=== PATIENT | male | born 1995 | race African-American/Black ===

== ENCOUNTER 2018-04-02 02:00 | Emergency (ER) | payer MEDICAID ==
[~2018-04-02] VITALS: Ht 182.9 cm; Wt 82.0 kg
[2018-04-02 06:35] VITALS: BP 139/98
== END 2018-04-02 08:15 | disposition left against medical advice (07) ==
LOC: ER 02:14
DX: Z53.21 Procedure and treatment not carried out due to patient leaving prior to being seen by health care provider (principal)

== ENCOUNTER 2018-05-15 22:41 | Emergency (ER) | payer SELFPAY ==
[~2018-05-15] VITALS: Ht 175.3 cm; Wt 69.0 kg
[2018-05-15] MEDS ORDERED: ONDANSETRON HCL 4MG/2ML VIAL IV STA (22:56)
[2018-05-15] MEDS ORDERED: SODIUM CHLORIDE 0.9% 1,000 ML IV ONE (22:56)
[2018-05-15 23:25] LABS: BASOPHILS % 0.5 % (0.0-2.0); EOSINOPHILS % 0.9 % (0.0-5.0); HEMATOCRIT. 43.7 % (42.0-52.0); HEMOGLOBIN. 14.8 g/dL (14.0-18.0); LYMPHOCYTES % 20.8 % (20.0-50.0); MEAN CORPUSCULAR HEMOGLOBIN 27.2 pg (28.0-32.0); MEAN CORPUSCULAR VOLUME 80.4 fL (80.0-94.0); MEAN PLATELET VOLUME 8.3 fl (7.4-10.4); MONOCYTES % 7.7 % (2.0-8.0); NEUTROPHILS % 70.1 % (40.0-76.0); PLATELET 261 x1000/uL (130-400); RED BLOOD CELL COUNT 5.44 mill/uL (4.7-6.1); RED CELL DISTRIBUTION WIDTH 14.1 % (11.6-14.6)
[2018-05-15 23:32] LABS: INR 1.1; PROTHROMBIN TIME 11.4 sec (9.4-11.6)
[2018-05-15 23:34] LABS: CHLORIDE 104 mEq/L (98-107)
[2018-05-15 23:37] LABS: ETHANOL BLOOD < 10 mg/dL
[2018-05-15 23:43] LABS: CREATINE KINASE 351 IU/L (39-308)
[2018-05-15 23:50] LABS: AMMONIA 55 uMol/L (<32)
[2018-05-16] MEDS ORDERED: SODIUM CHLORIDE 0.9% 1000ML BAG (SEPSIS BOLUS) IV NR (00:30)
[2018-05-16] MEDS: LACTULOSE 20G/30ML UDC PO NR (01:10)
[2018-05-16 02:19] LABS: CLARITY URINE CLEAR (CLEAR); COLOR URINE YELLOW (YELLOW); KETONES URINE NEGATIVE (NEGATIVE); LEUKOCYTE ESTERASE URINE NEGATIVE (NEGATIVE); NITRITE URINE NEGATIVE (NEGATIVE); OCCULT BLOOD URINE NEGATIVE (NEGATIVE); PH URINE 6.5 (4.5-8.0); PROTEIN URINE NEGATIVE (NEGATIVE); SPECIFIC GRAVITY URINE 1.022 (1.005-1.030)
[2018-05-16 02:32] LABS: *AMPHETAMINES SCREEN URINE NEGATIVE (NEGATIVE); *BARBITURATES SCREEN URINE NEGATIVE (NEGATIVE); *BENZODIAZEPINES SCREEN URINE NEGATIVE (NEGATIVE); *COCAINE SCREEN URINE PRESUMTIVE POSITIVE (NEGATIVE); METHADONE URINE SCREEN NEGATIVE (NEGATIVE)
[2018-05-16 02:33] LABS: CANNABINOID URINE SCREEN PRESUMTIVE POSITIVE (NEGATIVE); OPIATES URINE SCREEN NEGATIVE (NEGATIVE); PHENCYCLIDINE URINE SCREEN NEGATIVE (NEGATIVE)
[2018-05-16 05:20] VITALS: BP 134/89
== END 2018-05-16 05:20 | disposition home or self-care (01) ==
LOC: ER 23:05
DX: R41.0 Disorientation, unspecified (principal); F14.10 Cocaine abuse, uncomplicated; E72.4 Disorders of ornithine metabolism
CPT/HCPCS: 36415; 70450; 71045; 74176; 80053; 80305; 80307; 80329; 81003; 82140; 82550; 82962; 83605; 83690; 83880; 84443; 84484; 85025; 85610; 93005; 96374; 99285; G0482; J2405; J7030; Z7610; 96361